=== PATIENT | female | born 1960 | race Caucasian/White ===

== ENCOUNTER → 2023-05-03 08:08 | Outpatient (BNVA) | payer MEDICARE, OTHER, SELFPAY | PROVIDERS: PCP Family Medicine; Referring Provider Family Medicine; Visit Provider Psychiatry & Neurology Neurology | DX: R25.1 Tremor, unspecified (principal); R44.1 Visual hallucinations; R41.3 Other amnesia; I10 Essential (primary) hypertension; E11.9 Type 2 diabetes mellitus without complications | CPT/HCPCS: 99205 ==

== ENCOUNTER 2024-03-04 14:02 | Outpatient (CLI) | payer MEDICARE, OTHER, SELFPAY ==
--- NOTE | 2024-03-04 09:57 | DI.RAD_ITS ---
Exam(s) XR STANDING ALIGNMENT EXAM: XR STANDING ALIGNMENT CLINICAL HISTORY: left knee pain. TECHNIQUE: 2D digital imaging was performed. COMPARISON: CR XR KNEE COMPLETE MIN 4V LT from 01/03/2024 FINDINGS: 3 views There is minimal narrowing of the medial compartments of both knees. Left knee appears similar to im ages of 01/03/2024. Small marginal osteophytes are noted off both medial compartments. Both lateral compartments exhibit normal height but with bilateral chondrocalcinosis. Both hips appear unremarkable. Ankles unremarkable. IMPRESSION: Mild narrowing of the medial compartments of both knees. Chondrocalcinosis noted in the lateral compartments of both knees. DATA REPOSITORY: RADIATION DOSE DELIVERED:
--- NOTE | 2024-03-04 09:58 | DI.RAD_ITS ---
Exam(s) XR KNEE LT 1V EXAM: XR KNEE LT 1V CLINICAL HISTORY: left knee pain. TECHNIQUE: 2D digital imaging was performed. COMPARISON: CR XR KNEE COMPLETE MIN 4V LT from 01/03/2024 FINDINGS: Single lateral view No fractures. Minimal amount of increased joint fluid noted in the suprapatellar bursa. No prominen t joint space narrowing evident. IMPRESSION: As above. DATA REPOSITORY: RADIATION DOSE DELIVERED:
== END 2024-03-04 14:03 | disposition home or self-care (01) ==
LOC: DIORS 14:03
PROVIDERS: PCP Family Medicine; Referring Provider Family Medicine; Visit Provider Student in an Organized Health Care Education/Training Program
DX: M17.12 Unilateral primary osteoarthritis, left knee
CPT/HCPCS: 99213; 73560; 77073

== ENCOUNTER 2024-04-12 01:40 | Outpatient (CLI) | payer MEDICARE, OTHER, SELFPAY ==
--- OUTSIDE RECORDS SUMMARY | 2024-04-12 01:43 | XMS_ITS | Encounter Summary ---
Author Organization [facility] Address [address] [place] [address] Care Team Providers Care Medicare Sales Representative Name Role Phone Luis Paz DO Primary Care Provider + Adrian Benitez MD Primary Care Provider [phone] Encounter Details Date Type Department Care Team (Late st Contact Info) Description 05/20/2021 Lab Requisition [facility] Pathology & Laboratory Medicine - [address] [id number] Outr Resulting Lab, Provider Social History Tobacco Use Types Packs/Day Years Used Date Smoking Tobacco: Never Assessed Interpersonal Safety Answer Date Record ed Physically Hurt Never 06/02/2020 Verbally Threaten Not on file 06/02/2020 Sex and Gender Information Value Date Recorded Sex Assigned at Not on file Gender Identity Not on file Sexual Orientation Not on file documented as of this encounter Plan of Treatment Not on file documented as of this encounter Procedures Procedure Name Priority Date/Time Associated Diagnosis Comments ZZCOVID-19 TEST [facility] PCR Today 05/20/2021 11:36 EST COVID-19 TESTING Routine 05/20/2021 11:3 6 EST documented in this encounter Results * COVID-19 TEST [facility] PCR (05/20/2021 11:36 EST) Swab 05/20/2021 11:3 6 EST 05/20/2021 21:44 EST Provider Outr Resulting Lab MICROBIOLOGY - GENERAL ORDERABLES [facility] [address] [place] [address] * COVID-19 TESTING (05/20/2021 11:36 EST) COVID-19 rt-PCR Result Negative Negative 05/21/2021 15:57 [address] [facility] Comment: This test has not been FDA cleared or approved. This test has been authorized by FDA under an EUA for use by authorized laboratories. This test has been authorized only for detection of nucleic acid from 2019-nCoV, not for any other viruses or pathogens. This test is only authorized for the duration of the declaration that circumstances exist justifying the authorization of emergency use of in vitro diagnostic tests for detection and/or diagnosis of 2019-nCoV under section 564(b)(1) of Act, 21 U.S.C ?? 360bbb-3(b) (1), unless the authorization is terminated or revoked sooner. Negative results do not preclude 2019-nCoV infection and should not be used as the sole basis for treatment or other patient management decisions. Negative results must be combined with clinical observations, patient history, and epidemiological information. Testing was performed using the savannah SARS-CoV-2 assay ([employer] on the Savannah 6800 System Performing Lab [place] 6800 [facility] Lab 05/21/2021 15:57 EST [facility] Swab 05/20/2021 11:3 6 EST 05/20/2021 21:44 EST Provider Outr Resulting Lab MICROBIOLOGY - GENERAL ORDERABLES [facility] [address] [place] [address] documented in this encounter Visit Diagnoses Not on filedocumented in this encounter Care Teams Medicare Sales Representative Relationship Specialty Start Date End Date Luis Paz DO [address] [place] [address] ANSHU ARANDA 1 [place], [place] [address] PCP - General 07/10/22 11/06/22 Adrian Benitez MD [address] [place] [address] [place] [address] PCP - General Family Medicine - Primary Care 11/07/22 documented as of this encounter
--- OUTSIDE RECORDS SUMMARY | 2024-04-12 01:43 | XMS_ITS | Encounter Summary ---
Author Organization [facility] Address [address] [place] [address] Care Team Providers Care Manager Adult Name Role Phone Luis Paz DO Primary Care Provider + Adrian Benitez MD Primary Care Provider [phone] Encounter Details Date Type Department Care Team (Late st Contact Info) Description 03/24/2021 Lab Requisition [facility] Pathology & Laboratory Medicine - [address] [id number] Outr Resulting Lab, Provider Social History Tobacco [...] Comments ZZCOVID-19 TEST [facility] PCR Today 03/24/2021 11:56 EDT COVID-19 TESTING Routine 03/24/2021 11:5 6 EDT documented in this encounter Results * COVID-19 TEST [facility] PCR (03/24/2021 11:56 EDT) Swab ENTIRE NASOPHARYNX / Unknown 03/24/2021 11:56 EDT 03/24/2021 21:06 EDT Provider Outr Resulting Lab MICROBIOLOGY - GENERAL ORDERABLES [facility] [address] [place] [address] * COVID-19 TESTING (03/24/2021 11:56 EDT) COVID-19 rt-PCR Result Negative Negative 03/25/2021 18:52 EDT [facility] Comment: This test has not [...] clinical observations, patient history, and epidemiological information. Performed on the iFlexMeher Fusion instrument Performing Lab [place] [facility] Lab 03/25/2021 18:52 EDT [facility] Swab 03/24/2021 11:5 6 EDT 03/24/2021 21:06 EDT Provider Outr Resulting Lab MICROBIOLOGY - GENERAL ORDERABLES Performing Organization Address [facility] Co de Phone Number [facility] [address] [place] [address] documented in this encounter Visit Diagnoses Not on filedocumented in this encounter Care Teams Manager Adult Relationship Specialty Start Date End Date Luis Paz DO [address] [place] [address] ANSHU ARANDA [address] [place], [place] [id number] PCP - General 07/10/22 11/06/22 Adrian Benitez MD [address] [place] [address] [place], [place] [phone] PCP - General Family Medicine - Primary Care 11/07/22 documented as of this encounter
--- OUTSIDE RECORDS SUMMARY | 2024-04-12 01:43 | XMS_ITS | Encounter Summary ---
Author Organization [facility] Address [address] [place] [address] Care Team Providers Care Master Cook Name Role Phone Luis Paz DO Primary Care Provider + Adrian Benitez MD Primary Care Provider [phone] Encounter Details Date Type Department Care Team (Late st Contact Info) Description 10/25/2019 Lab Requisition [facility] Pathology & Laboratory Medicine - [facility] [address] [place] [address] Donald Boggs MD [address] [place] [id number] Encounter for other general examination Social History Tobacco Use Types Packs/Day Years Used Date Smoking Tobacco: Never Assessed Sex and Gender Information Value Date Recorded Sex Assigned at Not on file Gender Identity Not on file Sexual Orientation Not on file documented as of this encounter Plan of Treatment Not on file documented as of this encounter Procedures Procedure Name Priority Date/Time Associated Diagnosis Comments ZZCOVID-19 TEST [facility] PCR Today 10/25/2019 14:12 EDT Encounter for other general examination documented in this encounter Results * COVID-19 TEST [facility] PCR (10/25/2019 14:12 EDT) COVID-19 rt-PCR Result Negative Negative 10/26/2019 15:[address] [facility] Comment: Negative results do not preclude 2019-nCoV infection and should not be used as the sole basis for treatment or other patient management decisions. Negative results must be combined with clinical observations, patient history, and epidemiological information. This test has not been FDA cleared or approved. This test has been internally validated, but independent review and determination of emergency use authorization ??(EUA) by the FDA is pending. Performed on the Phone Warrior Fast Swab ENTIRE NASOPHARYNX / Unknown 10/25/2019 14:12 EDT 10/25/2019 21:44 EDT Donald Boggs MD MICROBIOLOGY - GEN ERAL ORDERABLES [facility] [address] [place] [address] documented in this encounter Visit Diagnoses Diagnosis Encounter for other general examination documented in this encounter Care Teams Master Cook Relationship Specialty Start Date End Date Luis Paz DO [address] [place] [address] [facility] [address] [place] [address] PCP - General 07/10/22 11/06/22 Adrian Benitez MD [address] [place] [address] [place] [address] PCP - General Family Medicine - Primary Care 11/07/22 documented as of this encounter
--- OUTSIDE RECORDS SUMMARY | 2024-04-12 01:43 | XMS_ITS | Encounter Summary ---
Author Organization [facility] Address [address] [place] [address] Care Team Providers Care Metrologist Name Role Phone Adrian Benitez MD Primary Care Provider Encounter Details Date Type Department Care Team (Late st Contact Info) Description 01/20/2023 Lab Requisition [facility] Pathology & Laboratory Medicine - [address] [address] Jose Henderson MD [address] [place] [phone] Personal history of colonic polyps Social History Tobacco Use Types Packs/Day Years [...] Procedure Name Priority Date/Time Associated Diagnosis Comments SURGICAL PATHOLOGY Today 01/20/2023 11 :52 EDT documented in this encounter Results * SURGICAL PATHOLOGY (01/20/2023 11:52 EDT) Note to Patient The following pathology results have been interpreted by your pathologist and may be available to you before your health provider has had the opportunity to review them. Please allow time for your provider to receive these results and explore management options, if applicable. 01/24/2023 10:44 EDT [facility] Final Diagnosis A. COLON, HEPATIC FLEXURE, POLYP, BIOPSY: - Fragments of tubular adenoma. B. COLON, SIGMOID, POLYP, BIOPSY: - Tubular adenoma. 01/24/2023 10:44 T [facility] Attestation By the signature below, the attending physician certifies that they have 1) personally conducted a gross and/or microscopic examination of the described specimen(s), and/or personally interpreted the results of laboratory testing of the described specimen(s), and 2) personally rendered or confirmed the above diagnosis. 01/24/2023 10:44 [facility] at 1044 Clinical History H/O colon polyps, colon polyp 01/24/2023 10:44 [facility] Gross Description A. Received in formalin labelled with proper patient identification (initials B, N) and A. Hepatic flexure polyp are 5 freeman tissues (0.4 x 0.3 x 0.1 cm to 0.2 x 0.1 x 0.1 cm). Entirely submitted in A1. B. Received in formalin labelled with proper patient identification (initials B, N) and B. Sigmoid colon polyp is a single brown polypoid tissue (0.4 x 0.3 x 0.1 cm). Submitted intact in B1. Carolina Rebolledo 01/23/2023 8:30 01/24/2023 10:44 EDT [facility] Performing Lab [facility] 01/24/2023 10:44 T [facility] Scanned Images 01/24/2023 10:44 T [facility] Tissue POLYP OF COLON / Unknown 01/20/2023 11:52 EDT 01/21/2023 9:03 EDT Tissue specimen (specimen) POLYP OF COLON / Unknown 01/20/2023 11:52 EDT 01/21/2023 9:03 EDT Jose Henderson MD PATHOLOGY ORDERABLES [facility] [address] [place] [address] documented in this encounter Visit Diagnoses Diagnosis Personal history of colonic polyps documented in this encounter Care Teams Metrologist Relationship Specialty Start Date End Date Adrian Benitez MD [address] [place] [address] [place] [address] PCP - General Family Medicine - Primary Care 11/07/22 documented as of this encounter
--- OUTSIDE RECORDS SUMMARY | 2024-04-12 01:43 | XMS_ITS | Clinical Summary ---
Author Organization [facility] Address [address] [place] [address] Care Team Providers Care Eight Section Blower Name Role Phone Adrian Benitez MD Primary Care Provider [phone] Social History Tobacco Use Types Packs/Day Years Used Date Smoking Tobacco: Never Assessed Interpersonal Safety Answer Date Record ed Physically Hurt Never 06/02/2020 Verbally Threaten Not on file 06/02/2020 Sex and Gender Information Value Date Recorded Sex Assigned at Not on file Gender Identity Not on file Sexual Orientation Not on file Plan of Treatment Health Maintenance Due Date Last Done Comments Hepatitis C Screen 1960 RSV Immunization ( o r 60+ Years) (1 - 1-dose 60+ series) 2018 COVID-19 Vaccine ( season) 2023 Fall Risk Screening 2023 Care Teams Eight Section Blower Relationship Specialty Start Date End Date Adrian Benitez MD [address] [place] [address] [place] [address] PCP - General Family Medicine - Primary Care 11/07/22
--- OUTSIDE RECORDS SUMMARY | 2024-04-12 01:43 | XMS_ITS | Encounter Summary ---
Author Organization [facility] Address [address] [place] [address] Care Team Providers Care Electrical Engineering Technician Name Role Phone Adrian Benitez MD Primary Care Provider [phone] Encounter Details Date Type Department Care Team (Late st Contact Info) Description 11/15/2022 Lab Requisition [facility] Pathology & Laboratory Medicine - [address] [address] Jose Henderson MD [address] [place] [phone] Encounter for other general examination Social History [...] Date/Time Associated Diagnosis Comments SURGICAL PATHOLOGY Today 11/14/2022 17 :39 EDT documented in this encounter Results * SURGICAL PATHOLOGY (11/14/2022 17:39 EDT) Note to Patient The following pathology results have been interpreted by your pathologist and may be available to you before your health provider has had the opportunity to review them. Please allow time for your provider to receive these results and explore management options, if applicable. 11/18/2022 11:22 EDT [facility] Final Diagnosis A. APPENDIX, APPENDECTOMY: - Appendix with focal mural fibrosis and fibrous luminal obliteration; changes suggestive of interval appendicitis. 11/18/2022 11:22 [facility] Attestation There was significant resident/fellow involvement in the diagnostic evaluation of this case. By the signature below, the attending physician certifies that they have personally conducted a gross and/or microscopic examination of the described specimens and rendered or confirmed the above diagnosis. 11/18/2022 11:22 [facility] at 1122 Clinical History Appendicitis 11/18/2022 11:22 [facility] Gross Description A. Received in formalin labelled with proper patient identification (initials B, N) and appendix is an intact appendix (7.2 cm in length by 0.9 cm in diameter) with abundant attached mesoappendix. The proximal margin is stapled. The serosa is pink-freeman to arredondo with multiple membranous adhesions. No perforations are identified. Sectioning reveals freeman cut surfaces with a wall thickness averaging 0.1 cm. The lumen ranges from 0.1 to 0.5 cm in diameter no obvious masses are identified. The specimen is entirely submitted in A1-A5. SHERLYN BENEDICT(ASCP) 11/16/2022 10:52 11/18/2022 11:22 [facility] Resident/Ramsey w: Saige Mohr MD 11/18/2022 11:22 [facility] Performing Lab [facility] 11/18/2022 11:22 [facility] Scanned Images 11/18/2022 11:22 [facility] Tissue ENTIRE APPENDIX / Unknown 11/14/2022 17:39 EDT 11/16/2022 9:09 EDT Jose Henderson MD PATHOLOGY ORDERABLES [facility] [address] [place] [address] documented in this encounter Visit Diagnoses Diagnosis Encounter for other general examination documented in this encounter Care Teams Electrical Engineering Technician Relationship Specialty Start Date End Date Adrian Benitez MD [address] [place] [address] [place] [address] PCP - General Family Medicine - Primary Care 11/07/22 documented as of this encounter
--- OUTSIDE RECORDS SUMMARY | 2024-04-12 01:43 | XMS_ITS | Referral Summary ---
Author Organization [facility] Address [address] [place] [address] Care Team Providers Care Applications Support Analyst Name Role Phone Adrian Benitez MD Primary Care Provider [phone] Social History Tobacco Use Types Packs/Day Years Used Date Smoking Tobacco: Never Assessed Interpersonal Safety Answer Date Record ed Physically Hurt Never 06/02/2020 Verbally Threaten Not on file 06/02/2020 Sex and Gender Information Value Date Recorded Sex Assigned at Not on file Gender Identity Not on file Sexual Orientation Not on file Plan of Treatment Not on file Care Teams Applications Support Analyst Relationship Specialty Start Date End Date Adrian Benitez MD [address] [place] [address] [place] [address] PCP - General Family Medicine - Primary Care 11/07/22
--- OUTSIDE RECORDS SUMMARY | 2024-04-12 01:43 | XMS_ITS | Encounter Summary ---
Author Organization [facility] Address [address] [place] [address] Care Team Providers Care Waste Salvager Name Role Phone Luis Paz DO Primary Care Provider + Adrian Beintez MD Primary Care Provider [phone] Encounter Details Date Type Department Care Team (Late st Contact Info) Description 07/28/2022 Lab Requisition [facility] Pathology & Laboratory Medicine - [address] [address] Jose Henderson MD [address] [place] [phone] Encounter for other general examination Social [...] Date/Time Associated Diagnosis Comments SURGICAL PATHOLOGY Today 07/28/2022 8:45 EST documented in this encounter Results * SURGICAL PATHOLOGY (07/28/2022 8:45 EST) Note to Patient The following pathology results have been interpreted by your pathologist and may be available to you before your health provider has had the opportunity to review them. Please allow time for your provider to receive these results and explore management options, if applicable. 08/01/2022 11:50 [facility] Final Diagnosis A. SKIN OF AXILLA, RIGHT, EXCISION: - Foreign body giant cell reaction with fat necrosis and fibrosis. See microscopic. 08/01/2022 11:50 [facility] Attestation By the signature below, the attending physician certifies that they have 1) personally conducted a gross and/or microscopic examination of the described specimen(s), and/or personally interpreted the results of laboratory testing of the described specimen(s), and 2) personally rendered or confirmed the above diagnosis. 08/01/2022 11:50 [facility] at 1150 Microscopic Description The excisional specimen shows fibroadipose tissue with numerous foamy histiocytes seen scattered and in aggregates with admixed acute and chronic inflammation. Polarization microscopy is negative for foreign material. A cyst is not seen in the sections examined. A lymph node is also not identified. The findings could represent a ruptured sinus or cyst though correlation is necessary. 08/01/2022 11:50 [facility] Clinical History Right axillary cyst/node 08/01/2022 11:50 [facility] Gross Description A. Received in formalin labelled with proper patient identification (initials B, N) and right axillary cyst are two lobulated portions of adipose tissue, 1.6 x 1.5 x 0.6 cm and 4.5 x 2.1 x 1.8 cm. Sections through both tissues show dense pale to opaque yellow adipose tissue with a small amount of adjacent glassy arredondo fibrous tissue. An obvious cyst is not identified. A lymph node is not identified. The specimen is entirely submitted as follows: BLOCK CHACKO A1- smaller tissue, bisected A2-A12- larger tissue as consecutive sections SHERLYN KELLY(ASCP) 07/29/2022 11:22 08/01/2022 11:50 [facility] Performing Lab [facility] 08/01/2022 11:50 [facility] Scanned Images 08/01/2022 11:50 [facility] Tissue TISSUE SPECIMEN FROM SKIN / Unknown 07/28/2022 8:45 EST 07/29/2022 8:20 EST Jose Henderson MD PATHOLOGY ORDERABLES [facility] [address] [place] [address] documented in this encounter Visit Diagnoses Diagnosis Encounter for other general examination documented in this encounter Care Teams Waste Salvager Relationship Specialty Start Date End Date Luis Paz DO [address] [place] [address] ,[facility] [address] [place], [place] [address] PCP - General 07/10/22 11/06/22 Adrian Benitez MD [address] [place] [address] [place], [place] [address] PCP - General Family Medicine - Primary Care 11/07/22 documented as of this encounter
--- OUTSIDE RECORDS SUMMARY | 2024-04-12 01:43 | XMS_ITS | Encounter Summary ---
Author Organization [facility] Address [address] [place] [address] Care Team Providers Care Junior Sales Assistant Name Role Phone Luis Paz DO Primary Care Provider + Adrian Benitez MD Primary Care Provider [phone] Encounter Details Date Type Department Care Team (Late st Contact Info) Description 06/16/2021 Lab Requisition [facility] Pathology & Laboratory Medicine - [address] [phone] Outr Resulting Lab, Provider Social History Tobacco [...] Comments ZZCOVID-19 TEST [facility] PCR Today 06/16/2021 13:07 EST COVID-19 TESTING Routine 06/16/2021 13:0 7 EST documented in this encounter Results * COVID-19 TEST [facility] PCR (06/16/2021 13:07 EST) Swab 06/16/2021 13:0 7 EST 06/16/2021 21:49 EST Provider Outr Resulting Lab MICROBIOLOGY - GENERAL ORDERABLES [facility] [address] [place] [address] * COVID-19 TESTING (06/16/2021 13:07 EST) COVID-19 rt-PCR Result Negative Negative 06/17/2021 15:27 EST [facility] Comment: This test has [...] performed using the savannah SARS-CoV-2 assay ([employer] on the Savannah 6800 System Performing Lab [place] [address] [facility] 06/17/2021 15:27 EST [facility] Swab 06/16/2021 13:0 7 EST 06/16/2021 21:49 EST Provider Outr Resulting Lab MICROBIOLOGY - GENERAL ORDERABLES [facility] [address] [place] [address] documented in this encounter Visit Diagnoses Not on filedocumented in this encounter Care Teams Junior Sales Assistant Relationship Specialty Start Date End Date Luis Paz DO [address] [place] [address] ANSHU ARANDA [address] [place], [place] [phone] PCP - General 07/10/22 11/06/22 Adrian Benitez MD [address] [place] [address] [place] [address] PCP - General Family Medicine - Primary Care 11/07/22 documented as of this encounter
--- OUTSIDE RECORDS SUMMARY | 2024-04-12 01:43 | XMS_ITS | Encounter Summary ---
Author Organization [facility] Address [address] [place] [id number] Care Team Providers Care Otr Owner Operator Name Role Phone Luis Paz DO Primary Care Provider + Adrian Benitez MD Primary Care Provider [phone] Encounter Details Date Type Department Care Team (Late st Contact Info) Description 10/12/2020 Lab Requisition [facility] - [address] [id number] Outr Resulting Lab, Provider Social History Tobacco [...] Comments ZZCOVID-19 TEST [facility] PCR Today 10/12/2020 8:45 EDT COVID-19 TESTING Routine 10/12/2020 8:45 EDT documented in this encounter Results * COVID-19 TEST [facility] PCR (10/12/2020 8:45 EDT) Swab ENTIRE NASOPHARYNX / Unknown 10/12/2020 8:45 EDT 10/12/2020 16:39 EDT Provider Outr Resulting Lab MICROBIOLOGY - GENERAL ORDERABLES [facility] [address] [place] [address] * COVID-19 TESTING (10/12/2020 8:45 EDT) COVID-19 rt-PCR Result Negative Negative 10/13/2020 16:10 EDT [facility] Comment: This test has not [...] patient history, and epidemiological information. This test was developed and its performance characteristics determined by [facility]. It has not been cleared or approved by the US Food and Drug Administration. FDA does not require this test to go through premarket FDA review. This test is used for clinical purposes. It should not be regarded as investigational or for research. This laboratory is certified under the Clinical Laboratory Improvement Amendments (CLIA) as qualified to perform high complexity clinical laboratory testing. This test is based on the [facility] COVID-19 Emergency Use Authorization (EUA) assay, with minor modification as defined by the FDA Performed on the [employer] Medo 7 Flex RT-PCR System. Performing Lab [facility] Lab 10/13/2020 16:10 EDT [facility] Swab 10/12/2020 8:45 EDT 10/12/2020 16:39 EDT Provider Outr Resulting Lab MICROBIOLOGY - GENERAL ORDERABLES Performing Organization Address City/[facility] Co de Phone Number [facility] [address] [place] [address] documented in this encounter Visit Diagnoses Not on filedocumented in this encounter Care Teams Otr Owner Operator Relationship Specialty Start Date End Date Luis Paz DO [address] [place] [address] [facility] [address] [place] [address] PCP - General 07/10/22 11/06/22 Adrian Benitez MD [address] [place] [address] [place] [address] PCP - General Family Medicine - Primary Care 11/07/22 documented as of this encounter
[2024-04-12 10:17] LABS: HCT 39.9 % (36.0-46.0); HGB 13.3 g/dL (11.2-15.7); MCH 29.3 pg (27.0-33.0); MCHC 33.3 % (32.0-36.0); MCV 88 fL (80-95); MPV 9.1 fL (8.0-11.0); Platelet Count 279 10^3/uL (130-400); RBC 4.54 10^6/uL (3.93-5.22); RDW 11.9 % (11.7-14.6); RDW-SD 37.9 fL; WBC 5.24 10^3/uL (4.4-10.8)
[2024-04-12 10:29] LABS: Hemoglobin A1C 6.5 % (<5.7)
[2024-04-12 10:39] LABS: Anion Gap 6.3 mmol/L (3-11); BUN 15 mg/dL (7-18); CO2 29.7 mmol/L (21.0-32.0); CREATININE 0.8 mg/dL (0.55-1.02); Calcium 9.7 mg/dL (8.5-10.1); Chloride 101 mmol/L (98-107); Estimated GFR 81.72 (mL/min/1.73m2); Potassium 3.9 mmol/L (3.5-5.1); Sodium 137 mmol/L (136-145)
[2024-04-12 10:53] LABS: Glucose 167 mg/dL (74-106)
[2024-04-15 14:23] LABS: Fructosamine 281 mcmol/L (200 - 285)
== END 2024-04-12 01:41 | disposition home or self-care (01) ==
LOC: LBO 01:42
PROVIDERS: PCP Family Medicine; Visit Provider Student in an Organized Health Care Education/Training Program
DX: M17.12 Unilateral primary osteoarthritis, left knee (principal); Z01.818 Encounter for other preprocedural examination; E11.9 Type 2 diabetes mellitus without complications
CPT/HCPCS: 36415; 80048; 85027; 82985; 83036

== ENCOUNTER 2024-04-23 08:42 | Day surgery (SDC) | payer MEDICARE, OTHER, SELFPAY ==
[2024-04-23] VITALS (34 sets, daily range): BP systolic 101–152; BP diastolic 33–76; PULSE 52–68; RESP 13–19; TEMP 36.2–36.6; O2SAT 92–98; BMI 32.8
[2024-04-23] MEDS: Acetaminophen 500 MG TAB 1000 MG PO (09:20)
[2024-04-23] MEDS: Celecoxib 200 MG CAP 400 MG PO (09:20)
[2024-04-23] MEDS: Gabapentin 300 MG CAP PO (09:21)
--- NOTE | 2024-04-23 09:22 | W.ANESPRE ---
General Info Date of Service Date Performed: 04/23/24 Height: 5 ft 2.5 in Weight: 82.6 kg Body Mass Index (BMI): 32.8 Surgical Procedure: Operation Date: 04/23/24 11:25 Proposed Procedure Side Surgeon p Knee Total Arthroplasty Left Donovan Cummins MD Meds Allergies and Home Medications Allergies Allergy/AdvReac Type Severity Reaction Status Date / Time empagliflozin AdvReac Intermediate Nausea Verified 04/23/24 09:07 metformin AdvReac Intermediate Diarrhea Verified 04/23/24 09:07 metoprolol AdvReac Intermediate Other (See Verified 04/23/24 09:07 Comment) sitagliptin AdvReac Intermediate Skin Rash Verified 04/23/24 09:07 Home Medication ?Medication ?Instructions ?Recorded acyclovir 5 % topical cream 5 g topical DAILY PRN 03/24/15 (Zovirax) aspirin 81 mg tablet,delayed 81 mg PO DAILY 03/24/15 release (Aspir-Low) chlorthalidone 25 mg tablet 25 mg PO DAILY 03/24/15 fluticasone propionate 50 50 mcg inhalation DAILY PRN 03/24/15 mcg/actuation nasal spray,suspension omeprazole 40 mg capsule,delayed 40 mg PO DAILY 03/24/15 release atorvastatin 40 mg tablet 40 mg PO DAILY 11/01/22 cholecalciferol (vitamin D3) 50 50 mcg PO DAILY 11/01/22 mcg (2,000 unit) capsule cyanocobalamin 1,000 tab PO 11/01/22 mcg-salcaprozate sodium 100 mg tablet glipizide 5 mg tablet, extended 15 mg PO DAILY 11/01/22 release 24 hr losartan 100 mg tablet 100 mg PO DAILY 11/01/22 magnesium gluconate 27 mg 27 mg PO DAILY 11/01/22 magnesium (500 mg) tablet (Mag-G) pioglitazone 15 mg tablet 15 mg PO DAILY 11/01/22 amlodipine 10 mg tablet 10 mg PO DAILY 05/03/23 duloxetine 30 mg capsule,delayed 30 mg PO DAILY 05/03/23 release gabapentin 300 mg capsule See Rx Instructions PO QHS #180 05/03/23 caps mecobalamin (vitamin B12) 500 mcg mcg PO 05/03/23 chewable tablet citalopram 40 mg tablet 40 mg PO DAILY 01/09/24 potassium chloride 20 mEq 20 meq PO DAILY 01/09/24 tablet,extended release semaglutide 0.25 mg or 0.5 mg (2 0.5 mg subcut QWEEK 03/04/24 mg/3 mL) subcutaneous pen injector (Ozempic) Current Visit Medications: Current Medications Generic Name Dose Route Start Last Admin Trade Name Nadeem PRN Reason Stop Dose Admin Acetaminophen 1,000 mg 04/23/24 06:00 04/23/24 09:20 Acetaminophen 500 Mg Tab PO 05/22/24 23:59 1,000 mg PREOP BROOKE Administration Celecoxib 400 mg 04/23/24 06:00 04/23/24 09:20 Celecoxib 200 Mg Cap PO 05/22/24 23:59 400 mg PREOP BROOKE Administration Gabapentin 300 mg 04/23/24 06:00 04/23/24 09:21 Gabapentin 300 Mg Cap PO 05/22/24 23:59 300 mg PREOP BROOKE Administration Ringer's Solution 1,000 mls @ 80 mls/hr 04/23/24 06:00 IV 05/22/24 23:59 INFUSION BROOKE Cefazolin Sodium/Dextrose 2 gm in 50 mls @ 100 mls/hr 04/23/24 06:00 Ancef Duplex IVPB 05/22/24 23:59 PREOP BROOKE Tranexamic Acid/Sodium Chloride 1,000 mg in 100 mls @ 600 mls/hr 04/23/24 06:00 IVPB 05/22/24 23:59 PREOP BROOKE IV Miscellaneous Supplies 1 each 04/23/24 06:00 Iv Access IV 05/22/24 23:59 DIRECTED BROOKE Sodium Chloride 0 ml 04/23/24 06:00 Normal Saline Flush 10 Ml Syr IV 05/22/24 23:59 PRN PRN Sodium Chloride 0 ml 04/23/24 06:00 Normal Saline 10 Ml Vial IJ 05/22/24 23:59 DIRECTED PRN Sterile Water 0 ml 04/23/24 06:00 Water,Injection,Sterile 10 Ml Vial IJ 05/22/24 23:59 DIRECTED PRN PFSH Active Problems Active Problems: Problem Status Onset Code History of total left knee replacement Acute 04/23/24 Z96.652 Tremor Acute R25.1 Memory changes Acute R41.3 Hallucination, visual Acute R44.1 Restless leg syndrome Acute G25.81 Medical History Medical History Vitamin B12 deficiency History of torn meniscus of knee Obesity DIANA (nonalcoholic steatohepatitis) Hyponatremia Hyperlipidemia Depressive disorder Aortic valve sclerosis Hypertension Obstructive sleep apnea Type 2 diabetes mellitus Surgical History Surgical History S/P arthroscopic knee surgery H/O elbow surgery S/P tubal ligation Hx laparoscopic cholecystectomy H/O total hysterectomy Hx of inguinal hernia repair S/P foot surgery, left History of esophagogastroduodenoscopy (EGD) Hx of cataract surgery Hx of colonoscopy H/O lymph node biopsy Tobacco Smoking/Tobacco Use Status: Never Alcohol Alcohol Intake: current Alcohol intake frequency: holidays/special occasions only Details: WINE-1-2 TIMES PER MONTH Substance Use Substance use: Never Substance use type: does not use Vital Signs and Lab Results Vital Signs Most Recent Vital Signs in EMR: Most Recent Vital Signs Temp Pulse Resp BP Pulse Ox 36.5 C 68 16 152/52 H 97 04/23/24 09:13 04/23/24 09:13 04/23/24 09:13 04/23/24 09:13 04/23/24 09:13 Vital Signs Comment Vital Signs Comment:: Temp Pulse Resp BP Pulse Ox 36.5 C 68 16 152/52 H 97 04/23/24 09:13 04/23/24 09:13 04/23/24 09:13 04/23/24 09:13 04/23/24 09:13 Lab Results Blood Type / Crossmatch: No Data to Display Complete Blood Count: White Blood Count 5.24 10^3/uL (4.4-10.8) 04/12/24 10:05 Red Blood Count 4.54 10^6/uL (3.93-5.22) 04/12/24 10:05 Hemoglobin 13.3 g/dL (11.2-15.7) 04/12/24 10:05 Hematocrit 39.9 % (36.0-46.0) 04/12/24 10:05 Platelet Count 279 10^3/uL (130-400) 04/12/24 10:05 Complete Metabolic Panel: Sodium 137 mmol/L (136-145) 04/12/24 10:05 Potassium 3.9 mmol/L (3.5-5.1) 04/12/24 10:05 Chloride 101 mmol/L (98-107) 04/12/24 10:05 Carbon Dioxide 29.7 mmol/L (21.0-32.0) 04/12/24 10:05 BUN 15 mg/dL (7-18) 04/12/24 10:05 Creatinine 0.8 mg/dL (0.55-1.02) 04/12/24 10:05 Est GFR (CKD-EPI 2020) 81.72 (mL/min/1.73m2) 04/12/24 10:05 Calcium 9.7 mg/dL (8.5-10.1) 04/12/24 10:05 Glucose 167 mg/dL (74-106) H 04/12/24 10:05 Hemoglobin A1c 6.5 % (<5.7) H 04/12/24 10:05 Liver Function Panel: No Data to Display Coagulation Panel: No Data to Display Cardiac Panel: No Data to Display Arterial Blood Gas: No Data to Display Venous Blood Gas: No Data to Display Pancreas Panel: No Data to Display Thyroid Panel: No Data to Display Infectious Disease: No Data to Display Blood Cultures: No Data to Display Toxicology Panel: No Data to Display Imaging and Studies Imaging and Studies Study information below may be from another EMR and interpreted by another provider. Please see original notes in EMR for more complete details. EKG Summary: 04/16/24 Sinus Torsten LVH T wave abnormality unchanged from previous Echocardiogram Summary: echocardiogram which as per read by Dr. Rand on 08/02/2023 states the following pertinent findings: EF of 60 to 65% with normal wall motion. There is no hemodynamically significant valve disease. Aortic valve is trileaflet and mobile. It is mildly thickened and calcified. There is no evidence of aortic stenosis...Mildly thickened mitral valve with posterior annular calcification. No mitral stenosis. There is trivial mitral regurgitation present... Mild tricuspid regurgitation... Pulmonic alignment valve appears structurally normal. Anesthesia Assessment and Plan Anesthesia History Personal History: PONV Family History: No Family History of Anesthesia Complications Exercise Tolerance Exercise Tolerance: Metabolic Equivalents>4 Pertinent Negatives Pertinent Negatives: No Symptoms of GERD (Well controlled GERD, denies DOS ), No Major Cardiovascular Symptoms or Complaints, No History of CVA/TIA and Other (BENIGNO - limited compliance with CPAP) Cardiac & Pulmonary Exam Cardiac Exam: Normal S1/S2 Heart Sounds Pulmonary Exam: Clear Bilateral Breath Sounds Implantable Cardiac Device Does patient have a Pacemaker or an ICD?: No Airway Exam Known Difficult Airway: No Mallampati Class: 2 Mouth Opening: Normal (> 3cm) Thyromental Distance: Greater than 3 cm Neck Range of Motion: Full ROM Neck Circumference: Normal Teeth Condition: Edentulous ASA Classification ASA Score: ASA 3 Emergency Case?: No NPO Status NPO Status: NPO Clears >2 hours, Solids >8 hours Anesthesia Plan Resuscitation Status: Full Code Anesthesia Technique: Spinal Anesthesia Airway Planned: Natural Airway Pain Management: Surgeon and patient request nerve block Monitors Used: Standard Monitors and SedLine Preoperative Comments:: Significant PMH: BENIGNO, HTN, DMII, Aortic sclerosis, Depression, Hallucinations Plan: Adductor canal block, spinal anesthetic, general w/ propofol infusion, natural airway, adequate IV access, sedline.
[2024-04-23] MEDS: Lactated Ringers 1,000 ML 80 ML IV (09:32)
--- NOTE | 2024-04-23 10:49 | W.ANESNERVE ---
Nerve Block Single Injection Procedure Date and Time Date Performed: 04/23/24 Procedure Start: 10:41 Location Where Procedure Performed Procedure Location: Day Surgery Unit Reason Performed: Postoperative Analgesia Requesting Provider: Donovan Cummins Timeout Performed Timeout Performed: Yes Monitoring Used ECG, Blood Pressure, SpO2 and See EMR for corresponding vital signs Sterility Sterility: Hand Hygiene, Surgical Cap, Surgical Mask, Sterile Gloves, Eye Protection and Chlorhexidine Sedation Given During Procedure Sedation Given (Indicate Dose Given): No Sedation given Patient Mental Status Patient Mental Status: Awake Nerve Block 1st Nerve Block: Laterality: Left Block Type: Adductor Canal Ultrasound Image Saved?: Yes Needle / Catheter Used: 100mm SonoPlex II Local Anesthetic Bolus (Indicate Dose Given): Lidocaine used for local infiltration of skin, Injected in 3-5ml increments after negative blood aspiration and Bupivacaine 0.25% Dose:: 15ml Additives (Indicate Dose Given): None Ultrasound: Sterile probe cover and gel used Nerve Stimulator: Supplement to Ultrasound use and No twitch or parasthesia noted < 0.5 mA Paresthesia: None Procedure Tolerated: No Complications and Patient tolerated well Procedure Outcome: Successful Performed By: David Luu Supervised By: Carolina Garcia
--- NOTE | 2024-04-23 10:50 | PDOC.DSDIS_ITS ---
Date of service: 04/23/24 Time of Service: 10:56 Discharge Plan Disposition Patient Disposition: Home Condition: Good Discharge Details Reason For Visit: Left knee DJD Attending Provider: Donovan Cummins Primary Care Provider: Adrian Benitez Home Meds and New Rx's Prescriptions: New celecoxib [Celebrex] 200 mg capsule 200 mg PO BID PRNQty: 60 0RF Rx Instructions: Take one tablet twice daily for pain and inflammation aspirin 81 mg tablet,delayed release (DR/EC) 81 mg PO BID 30 Days Qty: 60 0RF acetaminophen 500 mg tablet 1,000 mg PO Q8H PRN Qty: 90 0RF Rx Instructions: Take two tablets up to every 8 hours as needed for pain dexamethasone 4 mg tablet 4 mg PO DAILY Qty: 2 0RF Rx Instructions: Take one tablet once daily for two days docusate sodium [Colace] 100 mg capsule 100 mg PO BID Qty: 30 0RF oxycodone 5 mg tablet 5 mg PO Q4H PRNQty: 18 0RF Rx Instructions: Take one tablet up to every 4 hours as needed for severe postoperative pain Continued amlodipine 10 mg tablet 10 mg PO DAILY mecobalamin (vitamin B12) 500 mcg tablet,chewable PO duloxetine 30 mg capsule,delayed release(DR/EC) 30 mg PO DAILY gabapentin 300 mg capsule See Rx Instructions PO QHS Qty: 180 3RF Rx Instructions: 300mg HS x 1wk, then 600mg HS orally every day at bedtime; Ozempic 0.25 mg or 0.5 mg (2 mg/3 mL) pen injector 0.5 mg subcut QWEEK Rx Instructions: for 4 weeks atorvastatin 40 mg tablet 40 mg PO DAILY cholecalciferol (vitamin D3) 50 mcg (2,000 unit) capsule 50 mcg PO DAILY cyanocobalamin-salcaprozat sod 1,000-100 mcg-mg tablet PO glipizide 5 mg tablet extended release 24hr 15 mg PO DAILY losartan 100 mg tablet 100 mg PO DAILY magnesium gluconate [Mag-G] 27 mg magnesium (500 mg) tablet 27 mg PO DAILY pioglitazone 15 mg tablet 15 mg PO DAILY citalopram 40 mg tablet 40 mg PO DAILY potassium chloride 20 mEq tablet extended release 20 meq PO DAILY chlorthalidone 25 MG tablet 25 mg PO DAILY omeprazole 40 MG capsule,delayed release(DR/EC) 40 mg PO DAILY fluticasone propionate 16 GM spray,suspension 50 mcg Inhalation DAILY PRN acyclovir [Zovirax] 5 GM cream 5 g Topical DAILY PRN Discontinued aspirin [Aspir-Low] 81 MG tablet,delayed release (/SCOTT) 81 mg PO DAILY Discharge Instructions Additional Instructions: Total Knee Discharge Instructions Activity: The most important activity is to walk and to work on gentle motion (both flexion and extension). You should try to take short walks a few times a day. It is important that when resting you work on keeping the knee straight. Avoid putting a pillow behind the knee as this will encourage flexion. Work on range of motion exercises as provided by Physical Therapy. - Start outpatient physical therapy within 2 weeks. - You should wear the KORIN hose on both legs for 2 weeks. You may remove these at night. You may also use any compression sock in place of the KORIN hose. - Utilize [employer] to review exercises, see videos on exercises and obtain basic information pertaining to your surgery and your recovery. Dressing: Remove the Felton wrap by 2 days after your surgery and put on the KORIN stocking given to you from the hospital. Keep the surgical dressing (underneath the FELTON wrap) in place for at least one week. After the first week it may be removed and replaced with light gauze and tape or nothing. The wound and dressing may get wet after 3 days but avoid soaking the dressing or otherwise it will need to be changed. Many people prefer covering the dressing with cling wrap (saran wrap) to minimize it from getting soaked. If it gets wet, just pat dry. If it starts to peel off then it will need to be changed. Medications: - You should take Tylenol and anti-inflammatory Celebrex as your primary pain control medications. If the Celebrex is too expensive or not covered, please call the office for another alternative (Advil/Ibuprofen or Naproxen/Aleve) - You have been prescribed a stronger pain medication Oxycodone for breakthrough pain, take as needed as prescribed. - You take a stomach acid reduction agent Omeprazole at baseline - continue with this medication to help reduce stomach acid and reflux. - You will be taking Aspirin 81mg twice a day for DVT prevention unless instructed otherwise. - You have also been prescribed Decadron to take to control post-operative nausea and pain. You will start this tomorrow. - If you have constipation you should take Colace (which has been prescribed) or Miralax (which is available [id number]). It takes most people 3-4 days to have a bowel movement. Follow-up: 2 weeks If you have any acute concerns or questions, please do not hesitate to contact the office at [phone]. You may contact Dr. Cummins with any questions after hours through the hospital at [phone] or on his cell phone at [phone]. Referrals: Donovan Cummins MD [ [facility] STAFF PHYSICIAN] - Equipment/Supplies: Walker Activity:: Elevate Remove Dressings/Wound Care:: Do Not Remove Shower/Bathe:: Cover Diet:: As Tolerated Discharge Orders Discharge Orders: Discharge Order (Routine); Ordered 04/23/24 Ordered By: Vanessa Jackson
[2024-04-23] MEDS: ceFAZolin 2 GM/50 ML BAG IVPB (11:51)
[2024-04-23] MEDS: TRANEXAMIC ACID/SOD. CHL. 1,000 MG/100 ML BAG 600 MG IVPB (12:03)
--- NOTE | 2024-04-23 14:00 | W.ANESPOSTOP ---
Postoperative Evaluation Date, Time and Location Date Performed: 04/23/24 Time Performed: 14:00 Patient Location: PACU Vital Signs Most Recent Imported Vital Signs: Most Recent Vital Signs Temp Pulse Resp BP Pulse Ox 36.4 C L 53 L 15 101/76 94 04/23/24 13:47 04/23/24 13:45 04/23/24 13:46 04/23/24 13:45 04/23/24 13:46 Pain Score Most Recent Pain Score: Most Recent Pain Score Pain Level 0 04/23/24 13:47 Assessment Mental Status: Arousable with meaningful communication Airway and Respiratory Function: Patent airway with normal (patient baseline) respiratory exam Cardiovascular Function: Hemodynamically Stable Hydration Status: Adequately Hydrated Nausea & Vomiting: No Nausea or Vomiting Pain: Pain is tolerable per patient Peripheral Nerve Block: Regional nerve block not resolved at time of post operative discharge Teaching Patient Teaching: Discussed Safe Use of Pain Medication Given Recent Anesthesia, Discussed Safe Use of Pain Medication Given Likely or Known BENIGNO and Discussed the importance of using CPAP/BiPAP during any sleep period Postoperative Comments:: Mrs. Orourke is postop in PACU, awake, alert and oriented, conversing with staff, reports pain is tolerable, denies N/V, respirations to baseline, all questions and concerns sought and answered.
--- NOTE | 2024-04-23 14:36 | W.PM.OP ---
Date of service: 04/23/24 Time of Service: 12:15 Operative Note Operative Note DATE OF PROCEDURE: 04/23/24 PRE-OP DIAGNOSIS: Left Knee Osteoarthritis POST-OP DIAGNOSIS: same PROCEDURE: Left Total Knee Replacement SURGEON: Donovan Cummins EXERCISE MANAGER: Vanessa Jackson ANESTHESIA TYPE: Spinal Refer to Anesthesia Record ESTIMATED BLOOD LOSS: 50 PATHOLOGY: none sent TOURNIQUET TIME: 0 COMPLICATIONS: None Patient was transported to: PACU Patient's condition: stable Implants: 1. Depuy Attune Cementless Cruciate Retaining Femoral Component, Size 5 2. Depuy Attune Cementless Fixed Bearing Tibial Component, Size 4 3. Depuy Attune 5x6 CR/FB Poly 4. Depuy Attune Patellar Component, Size 35 Indications: I have seen Tg in clinic for symptoms of knee arthritis, confirmed with radiographic findings. She has exhausted nonoperative methods and was having significant limitations in daily function and desired better function and less pain. I discussed the technical details of a knee replacement. I explained the risks of the procedure to include, but not limited to, bleeding, infection, pain, stiffness, fracture, damage to nerves and vessels, damage to muscles and tendons, loosening, need for repeat procedure, blood clot and cardiopulmonary demise. Despite these risks, Tg elected to proceed. Findings: There was arthritis within the trochlear and the medial femur primarily. Procedure Description: Tg was greeted in the preoperative holding area where the correct side was identified and marked. The consent was reviewed with the patient and signed. The history and physical was updated. All questions were answered. Preoperative medications were administered: Acetaminophen 1000mg, Celebrex 400mg, and Gabapentin 300mg. An adductor canal block was then administered by the anesthesia team in the DSU. Tg was taken back to the operating room. A spinal anesthestic was then administered. The patient was placed into the supine position on the operating room table. A nonsterile tourniquet was placed high onto the leg but only used for cementing. Posts were placed for positioning during the procedure. All bony prominences were well padded. Prophylactic antibiotics in the form of Cefazolin were administered. 1g of Tranxemic Acid was given intravenously within 30 minutes of incision. The left leg was then prepped with Chloraprep and draped in a standard fashion with impervious stockinette. A second prep with Chloraprep was performed prior to application of Iodine impregnated skin protection. A timeout to confirm correct identity, side and site, procedure, allergies, anesthesia, and medical concerns was performed. With the knee in some flexion, a midline incision was made overlying the knee. Full thickness skin flaps were raised once the extensor mechanism was encountered. These were raised medially and laterally. Any bleeding was controlled with electrocautery. Once the extensor mechanism was fully exposed, a medial parapatellar arthrotomy was performed in a flexed position. All bleeding from the arthrotomy and the geniculate arteries was coagulated. A medial subperiosteal peel was performed with electrocautery to the midcoronal plane. The fat pad was removed while keeping the patellar tendon protected. The anterior distal femur synovium was removed for later visualization. The ACL and PCL were resected and the anterior horn of the lateral meniscus was transected. The knee was then flexed with the patella everted. Using a step drill, and based on preoperative templating, the femoral canal was entered. This was done with a step drill without any difficulty. The intramedullary distal femoral cut guide was inserted, set to a 6 degree valgus cut and 9mm cut thickness. The distal femoral cut guide was then held in position and pinned. With the soft tissues protected, the distal cut was performed. This was passed over a few times to ensure a planar cut. I then turned attention to the tibia. The extramedullary guide was placed onto the leg. The distal aspect was slid medial to adjust for position of center of ankle and stay in line with shaft of the tibia. Approximately 5 degrees of posterior slope was kept in the proximal cutting guide. The center of the guide was aligned with the PCL. The stylus was used to assess cut thickness. The medial side, most involved side, was set for a 6mm cut. This was then held in position and pinned into place with 2 additional pins and a cross pin for stability. The medial and lateral collateral ligaments were protected and the cut was performed. With this completed, it was assessed and noted to be of appropriate dimensions. The guide was removed. A spacer block was inserted and the knee was brought into extension. The 6mm spacer block provided full extension, without hyperextension and with stability of both the medial and lateral collateral ligaments was assessed. The pins from the femur and the tibia were then removed. The distal femur was then sized. The anterior stylus was placed onto the lateral ridge of the anterior femur. This indicated a size 5 femur. The external rotation of the guide was adjusted to 3 degrees to match the epicondylar axis, perpendicular to [place]?s line. The 4-in-1 cutting guide was the placed, posterior translated 1.5mm. The posterior medial femur cut was evaluated and appeared of good thickness. The spacer block was inserted underneath the cutting guide and stability was confirmed in 90 degrees of flexion. An asa wing was used to confirm appropriate position of the anterior cut to avoid notching. This cutting guide was ensured to be flush on the cut surface and then pinned into place with headed pins. While protecting the soft tissues, quad tendon, and collateral ligaments, the anterior and posterior cuts were performed with a saw. The central two pins were removed and the posterior and anterior chamfers were cut next. The notch-cutting guide was placed. This was pinned to lateralize the femoral component as much as possible while keeping it flush on the cut surface. This was then pinned into position. A reciprocating saw was used to make the notch cut. A rasp smoothed the cut surfaces. The medial and lateral menisci were removed. A trial femoral component was then inserted, impacted down to the cut surfaces, and the lug holes were drilled. A provisional trial tibial component was placed and the knee was brought through range of motion. There was noted to be excellent extension and flexion. There was no significant instability. The patella was tracking without thumbs. A size 6mm polyethylene component provided the best range of motion and stability with less than 2mm gapping with medial and lateral stress and full extension without significant hyperextension. The tibial cut surface was fully exposed. The tibia was then sized as a 4. The tibia had been previously marked during trialing to correspond to the center of the tibial component to help with rotation. The trial was aligned to this celine, approximately rotated to the medial 1/3rd of the tibial tubercle. The trial was pinned into place. The tibia was prepared with a reamer and a keel punch and lug holes. The knee was then brought into extension and the patella was measured as 23mm. Using the patellar clamp and cut guide, this was resected to a flat surface with at least 13mm of thickness remaining. The size 35 patella fit the best. This was oriented and then clamped into position. The lugs were drilled. The trial components were removed. The final components were opened on the back table. The periosteal and capsular tissues, especially posteriorly, around the knee were then systematically injected with a periarticular cocktail consisting of 246mg of Ropivacaine, 0.5mg of Epinephrine, 0.08mg of Clonidine, and 30mg of Ketorolac, diluted to 100cc. On the back table, with the implants opened, the cement was mixed. One batch of high viscosity cement was prepared with vacuum assistance. After the cement was ready a small amount was placed on the cut surface of the patella and the patellar button was clamped into position and held. While the cement was hardening, the cementless knee components were placed. Starting with the tibial component, the tibia was subluxed anteriorly and the lug holes of the component were lined up. The tibia was then impacted with an impactor and mallet until the tibial component was in contact with the tibia. The final polyethylene component was inserted. Then, the femoral component was inserted. The lug holes were aligned and the component was impacted into position. The knee was irrigated with Surgiphor Betadine solution. This was allowed to sit in the knee for 3 minutes and then it was irrigated out with saline. After the cement had finally cured, approximately 15min, the clamp was removed from the patella and the knee was taken through range of motion. The patella was tracking with a no-thumbs technique. The capsule was then reapproximated with a No. 1 Vicryl at multiple locations. The capsule was finally closed with a No. 2 Stratafix, barbed suture. The second dosing of 1g TXA was started. Deep tissues were then reapproximated with 0 Vicryl and 2-0 Vicryl. The skin was closed with a running 3-0 Monocryl in a subcuticular fashion. This was reinforced with skin glue. A Mepilex silver dressing was applied along with a [id number] JULIANNA wrap. A CryoCuff was applied. Tg was transferred to the hospital bed without difficulty an suffering no apparent complication. She has a good prognosis. Physical therapy will start today and without restrictions, weight-bearing as tolerated. Aspirin 81mg BID will be used for DVT prophylaxis.
--- NOTE | 2024-04-23 15:51 | PT.INIE ---
PT Notes Visit Reasons: Left knee DJD Physical Therapy Day Surgery Initial Evaluation Date: 04/23/2024 Referring Doctor: Dr. Cummins PT Orders: PT CONSULT: Status post Ortho surgery Precautions: Weightbearing as tolerated, KORIN stockings x 2 weeks Patient Profile/Admitting Diagnosis: Patient is 63-year-old female presenting status post elective left TKA on 04/23/2024. patient postop uncomplicated. PMHX: Restless leg syndrome , tremor, history of visual hallucinations and some memory changes Social History/Home Situation: Patient resides in an apartment with 4 steps to enter and railing on the right. She is independent ambulation with a cane recently prior to this she was independent without a device. Patient independent ADLs, IADLs, meals, cooking, shopping, med management, relations director. 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 Objective: General Observation: Awake alert motivated female semireclined on stretcher with Cryo/Cuff in place to left knee and agreeable to participate Mental Status: Alert and oriented x 4 Pain: 1/10 left knee ROM: Right Upper Extremity: WNL Left Upper Extremity: WNL Right Lower Extremity: WNL Left Lower Extremity: Within normal limits except left knee 0-92 degrees Strength: Right Upper Extremity: 5/5 Left Upper Extremity: 5/5 Right Lower Extremity: 5/5 Left Lower Extremity: Quad demonstrating straight leg raise to 30 degrees without lag, hamstring 2+ out of 5 Sensation: Intact Bed Mobility/Transfers: Supine to sit independent Sit to stand independent Stand to sit independent Bed to chair independent with FWW Gait: Patient ambulated 150 feet with FWW supervision reciprocal pattern demonstrating decreased knee flexion on the left increased lateral weight shift to the right foot clearance of left lower extremity Balance: Static Sitting: Normal Dynamic Sitting: Good plus Static Standing: Normal Dynamic Standing: Good Special Tests: [] Mobility Limitations Standardized Measure [] [facility] AM-PAC 6 clicks Basic Mobility Inpatient Short Form: [] Raw Score: 22 CMS Score: 20.91% Informed Consent/Education: Patient instructed in purpose of PT consult. Packet containing TKA exercise protocol has been given to patient. Education and training on initial set of exercises that can be done at home have been completed with patient. Patient's daughter present and participated in training for stairs. Assessment: Patient demonstrates strong quad set and able to perform straight leg raise and limited range without quad lag left lower extremity. Patient presents with clinical signs and symptoms consistent with current/admitting diagnoses that have resulted to mobility limitations, gait instability, generalized weakness, and impairment of motor control as demonstrated by the following impairment level findings: 1. Decreased strength to left knee major muscle groups 2. Impaired standing balance 3. Limitation of joint range of motion in left knee Impairments are contributing to the following functional limitations: 1. Inability to safely ambulate without assistive device 2. Increase completion time for mobility ADL performance 3. Increased fall risk Patient is assessed as a low complexity based on the following: History: 63-year-old female with impairment level findings, functional limitations, and past medical history as indicated above Examination: Demonstrable impairment in strength, balance, and mobility level with underlying impairments and functional limitations as documented above Presentation: Stable Decision Making: Low Goals: N/A. Plan of Care/Treatment Plan: N/A. DISCHARGE RECOMMENDATIONS: Home with outpatient PT as scheduled TREATMENT CODE/TIME: 46239 30 minutes [id number] Thank you for the opportunity to participate in the care of this patient. Please sign an return this page within 30 days if you agree with the above POC. Thank you! Physician Signature Date [facility]
== END 2024-04-23 16:00 | disposition home or self-care (01) ==
PROVIDERS: PCP Family Medicine; Visit Provider Student in an Organized Health Care Education/Training Program
PROC: (CPT 27447; principal; 2024-04-23 11:15)
DX: M17.12 Unilateral primary osteoarthritis, left knee (principal); G25.81 Restless legs syndrome; E66.9 Obesity, unspecified; E78.5 Hyperlipidemia, unspecified; E11.9 Type 2 diabetes mellitus without complications; Z79.85 Long-term (current) use of injectable non-insulin antidiabetic drugs; G89.18 Other acute postprocedural pain
CPT/HCPCS: 27447; 64447; 76942; 97161; C1776; J0665; J0690; J1100; J2250; J2401; J2405; J2704

== ENCOUNTER 2024-05-06 11:47 | Outpatient (CLI) | payer MEDICARE, OTHER, SELFPAY ==
--- NOTE | 2024-05-06 09:45 | DI.RAD_ITS ---
Exam(s) XR KNEE LT 1V XR STANDING ALIGNMENT EXAM: XR STANDING ALIGNMENT CLINICAL HISTORY: 1ST POST OP S/P L TKA. TECHNIQUE: 2D digital imaging was performed. Standing AP views were performed from the pelvis throu gh the ankles. COMPARISON: CR XR KNEE COMPLETE MIN 4V LT from 01/03/2024 CR XR STANDING ALIGNMENT from 03/04/2024 CR XR KNEE LT 1V from 03/04/2024 CR XR KNEE LT 1V from 05/06/2024 FINDINGS: BONES: No acute fracture is present. No bony destructive lesion is seen. Leg length discrepancy: There is a mild overall leg length discrepancy, with the left femoral head pr ojecting 5 millimeters superior to the right. JOINTS: Knees: A left total knee prosthesis has been placed since the previous exam. The alignment a ppears satisfactory. There is mild narrowing of the medial femoral tibial joint space of the right k nee. The ankle joints show mild bilateral joint space narrowing. The hip joints are unremarkable. SOFT TISSUE: Normal. IMPRESSION: Status post placement of left total knee prosthesis. Mild overall leg length discrepancy. DATA REPOSITORY: RADIATION DOSE DELIVERED:
== END 2024-05-06 11:48 | disposition home or self-care (01) ==
LOC: DIORS 11:47
PROVIDERS: PCP Family Medicine; Referring Provider Family Medicine; Visit Provider Student in an Organized Health Care Education/Training Program
DX: Z96.652 Presence of left artificial knee joint (principal); Z47.1 Aftercare following joint replacement surgery
CPT/HCPCS: 99024; 73560; 77073

== ENCOUNTER → 2024-06-27 10:49 | Outpatient (BNVA) | payer MEDICARE, OTHER, SELFPAY | PROVIDERS: PCP Family Medicine; Referring Provider Family Medicine; Visit Provider Student in an Organized Health Care Education/Training Program | DX: Z47.1 Aftercare following joint replacement surgery (principal); Z96.652 Presence of left artificial knee joint | CPT/HCPCS: 99024 ==